=== PATIENT | male | born 1995 | race American Indian/Alaskan Native ===

== ENCOUNTER 2020-02-20 07:07 | Emergency (ER) | payer OTHER ==
[2020-02-20 07:14] VITALS: BP 167/94
[2020-02-20 08:27] LABS: Basophils % (Auto) 0.4 % (0.0-1.8); Eosinophils % (Auto) 0.2 % (0.0-4.3); Hematocrit 44.2 % (35.5-45.6); Hemoglobin 14.6 gm/dl (11.8-15.2); Lymphocytes # (Auto) 0.9 K/mm3 (1.2-5.4); Lymphocytes % (Auto) 15.8 % (13.4-35.0); Mean Corpuscular HGB Conc 33 % (32-34); Mean Corpuscular Volume 90 fl (84-94); Monocytes # (Auto) 0.4 K/mm3 (0.0-0.8); Monocytes % (Auto) 6.7 % (0.0-7.3); Platelet Count 243 K/mm3 (140-440); Red Blood Count 4.93 M/mm3 (3.65-5.03); Red Cell Distribution Width 13.7 % (13.2-15.2)
[2020-02-20 08:38] LABS: Bilirubin,Urine NEG (Negative); Blood,Urine NEG (Negative); Color,Urine Amber (Yellow); Mucus,Urine 3+ /HPF
[2020-02-20 08:49] LABS: Alanine Aminotransferase 17 units/L (7-56); Albumin 4.7 g/dL (3.9-5); BUN/Creatinine Ratio 14; Blood Urea Nitrogen 11 mg/dL (9-20); Hemolysis Index 3
[2020-02-20] MEDS ORDERED: SODIUM CHLORIDE 0.9% 1000 ML 1,000 ML IV ONE ×2 (10:53→11:54)
--- NOTE | 2020-02-20 11:02 | Emergency Department Report ---
ED Abdominal Pain HPI - General Chief Complaint: Abdominal Pain Stated Complaint: ABD PAIN, VOMITTING Time Seen by Provider: 02/20/20 10:53 Source: patient Mode of arrival: Ambulatory Limitations: No Limitations - History of Present Illness Initial Comments: 24-year-old -[place] male presents to the emergency room complaining of abdominal pain and cramping with nausea and vomiting for months. Patient reports that he has not followed up with anyone as he does not have a primary care provider. Patient stated he last vomited in the waiting room. Patient states that the pain is intermittent has no pain at this moment. MD Complaint: abdominal pain Location: diffuse, epigastric Severity scale (0 -10): 0 Quality: cramping Consistency: intermittent Improves With: eating Associated Symptoms: nausea, vomiting. denies: diarrhea, constipation, dysuria, hematuria - Related Data Previous Rx's Medication Instructions Recorded Last Taken Type Doxycycline Hyclate [Doxycycline 100 mg PO Q12HR #14 tab 05/17/16 Unknown Rx Hyclate TAB] HYDROcodone/APAP 5-325 [[place] 1 each PO Q8HR PRN #10 tablet 05/17/16 Unknown Rx 5/325] Famotidine [Pepcid] 20 mg PO BID #30 tablet 02/20/20 Unknown Rx Hyoscyamine Subl [Levsin Sl 0.125 0.125 mg SL Q6HR PRN #12 tab 02/20/20 Unknown Rx TAB] Allergies Allergy/AdvReac Type Severity Reaction Status Date / Time No Known Allergies Allergy Verified 05/17/16 03:03 ED Review of Systems ROS: Stated complaint: ABD PAIN, VOMITTING Other details as noted in HPI Comment: All other systems reviewed and negative ED Past Medical Hx - Past Medical History Previous Medical History?: Yes Hx Asthma: Yes - Surgical History Past Surgical History?: Yes Additional Surgical History: Tonsillectomy - Social History Smoking Status: Current Every Day Smoker Substance Use Type: Marijuana - Medications Home Medications: Home Medications Medication Instructions Recorded Confirmed Last Taken Type Doxycycline Hyclate [Doxycycline 100 mg PO Q12HR #14 tab 05/17/16 Unknown Rx Hyclate TAB] HYDROcodone/APAP 5-325 [[place] 1 each PO Q8HR PRN #10 tablet 05/17/16 Unknown Rx 5/325] Famotidine [Pepcid] 20 mg PO BID #30 tablet 02/20/20 Unknown Rx Hyoscyamine Subl [Levsin Sl 0.125 0.125 mg SL Q6HR PRN #12 tab 02/20/20 Unknown Rx TAB] ED Physical Exam - General Limitations: No Limitations General appearance: alert, in no apparent distress, obese - Head Head exam: Present: atraumatic, normocephalic - Eye Eye exam: Present: normal appearance - ENT ENT exam: Present: mucous membranes moist - Neck Neck exam: Present: normal inspection, full ROM - GI/Abdominal GI/Abdominal exam: Present: soft, normal bowel sounds. Absent: distended, tenderness, guarding, rebound - Extremities Exam Extremities exam: Present: normal inspection - Back Exam Back exam: Present: normal inspection - Neurological Exam Neurological exam: Present: alert, oriented X3, normal gait - Psychiatric Psychiatric exam: Present: normal affect, normal mood - Skin Skin exam: Present: warm, dry, intact, normal color. Absent: rash ED Course Vital Signs 02/20/20 07:11 Temperature 98.6 F Pulse Rate 70 Respiratory 20 Rate Blood Pressure 167/94 O2 Sat by Pulse 98 Oximetry ED Medical Decision Making - Lab Data Result diagrams: 02/20/20 07:59 02/20/20 07:59 - Medical Decision Making 24-year-old -[place] male presents to the emergency room complaining of abdominal pain and cramping with nausea and vomiting for months. Patient reports that he has not followed up with anyone as he does not have a primary care provider. Patient stated he last vomited in the waiting room. Patient states that the pain is intermittent has no pain at this moment. Patient currently has no abdominal pain. Review of urinalysis shows that he has 80 ketones with a elevated specific gravity will give patient IV with normal saline. Discussed with patient is to follow-up with a primary care provider or GI specialist. Patient verbalized understanding. Critical care attestation.: If time is entered above; I have spent that time in minutes in the direct care of this critically ill patient, excluding procedure time. ED Disposition Clinical Impression: Chronic generalized abdominal pain, Obesity Disposition: DC-01 TO HOME OR SELFCARE Is pt being admited?: No Does the pt Need Aspirin: No Condition: Stable Instructions: Abdominal Pain (ED), Obesity (ED) Additional Instructions: Please take medication as prescribed for acid reflux and abdominal cramping. 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 I have listed several below for your convenience. Increase your fluid intake. Prescriptions: Hyoscyamine Subl [Levsin Sl 0.125 TAB] 0.125 mg SL Q6HR PRN #12 tab PRN Reason: abd pain Famotidine [Pepcid] 20 mg PO BID #30 tablet Referrals: BLACK VELASCO MD [Primary Care Provider] - 3-5 Days [facility] [Provider Group] - 3-5 Days HAILEE SHETTY MD [Staff Physician] - 3-5 Days
== END 2020-02-20 16:20 | disposition home or self-care (01) ==
LOC: ED 07:07
DX: J45.909 Unspecified asthma, uncomplicated (principal); F17.200 Nicotine dependence, unspecified, uncomplicated; F12.10 Cannabis abuse, uncomplicated; Z90.89 Acquired absence of other organs; Z79.899 Other long term (current) drug therapy; E66.8 Other obesity
CPT/HCPCS: 36415; 80053; 81001; 83690; 85025; 96360; 96361; 99283; J7030

== ENCOUNTER 2022-07-04 10:12 | Emergency (ER) | payer SELFPAY ==
[2022-07-04] MEDS ORDERED: ONDANSETRON 4 MG ODT TAB PO ONE (12:37)
[2022-07-04] MEDS ORDERED: ALUM-MAG HYDROXIDE-SIMETHICONE 200-200-20MG/5ML ORAL LIQD 30 ML PO ONE (12:37)
[2022-07-04] MEDS ORDERED: DICYCLOMINE 10 MG/5 ML ORAL LIQD PO ONE (12:37)
[2022-07-04] MEDS ORDERED: LIDOCAINE VISCOUS 2% 15 ML ORAL LIQD PO ONE (12:37)
[2022-07-04 13:31] VITALS: BP 122/77
[2022-07-04 13:45] LABS: Hematocrit 42.5 % (35.5-45.6); Hemoglobin 13.9 gm/dl (11.8-15.2); Mean Corpuscular HGB Conc 33 % (32-34); Mean Corpuscular Volume 90 fl (84-94); Platelet Count 270 K/mm3 (140-440); Red Blood Count 4.74 M/mm3 (3.65-5.03); Red Cell Distribution Width 13.5 % (13.2-15.2)
[2022-07-04 14:01] LABS: Alanine Aminotransferase 19 units/L (7-56); Albumin 4.4 g/dL (3.9-5); BUN/Creatinine Ratio 12; Blood Urea Nitrogen 11 mg/dL (9-20); Calcium 9.7 mg/dL (8.4-10.2); Hemolysis Index 9
--- NOTE | 2022-07-04 15:29 | Emergency Department Report ---
ED Abdominal Pain HPI - General Chief Complaint: Abdominal Pain Stated Complaint: VOMITTING X3 Time Seen by Provider: 07/04/22 12:13 Source: patient Mode of arrival: Ambulatory Limitations: No Limitations - History of Present Illness Initial Comments: 26-year-old black male with no past medical history presents to the emergency department for evaluation of 3 to 4-day history of intermittent nausea vomiting along with burning to his epigastric area. He states that sometimes when he eats he vomits any pain has the burning in his epigastric area. He states that he has been intermittent but worse than usual. He denies fever, dysuria, penile discharge, or any sick contacts. MD Complaint: abdominal pain -: days(s) (3-4) Location: epigastric Radiation: none Migration to: no migration Severity scale (0 -10): 3 Quality: burning Consistency: intermittent Worsens With: eating Associated Symptoms: nausea, vomiting. denies: diarrhea, fever, chills, dysuria, hematemesis, hematochezia, melena, hematuria, anorexia, syncope - Related Data Previous Rx's Medication Instructions Recorded Last Taken Type Doxycycline Hyclate [Doxycycline 100 mg PO Q12HR #14 tab 05/17/16 Unknown Rx Hyclate TAB] HYDROcodone/APAP 5-325 [[place] 1 each PO Q8HR PRN #10 tablet 05/17/16 Unknown Rx 5/325] Famotidine [Pepcid] 20 mg PO BID #30 tablet 02/20/20 Unknown Rx Hyoscyamine Subl [Levsin Sl 0.125 0.125 mg SL Q6HR PRN #12 tab 02/20/20 Unknown Rx TAB] Ondansetron [Zofran Odt] 4 mg PO Q8HR PRN #12 tab.rapdis 07/04/22 Unknown Rx Pantoprazole [Protonix] 40 mg PO QAM #30 tablet 07/04/22 Unknown Rx Allergies Allergy/AdvReac Type Severity Reaction Status Date / Time No Known Allergies Allergy Verified 05/17/16 03:03 ED Review of Systems ROS: Stated complaint: VOMITTING X3 Other details as noted in HPI Comment: All other systems reviewed and negative Constitutional: denies: chills, diaphoresis, fever, malaise, weakness ENT: denies: congestion Respiratory: denies: shortness of breath Cardiovascular: denies: chest pain, palpitations Gastrointestinal: abdominal pain, nausea, vomiting. denies: diarrhea, hematemesis, melena, hematochezia Genitourinary: denies: urgency, dysuria, frequency, hematuria, discharge Musculoskeletal: back pain Neurological: headache, weakness ED Past Medical Hx - Past Medical History Hx Asthma: Yes - Surgical History Additional Surgical History: Tonsillectomy - Social History Smoking Status: Current Every Day Smoker Substance Use Type: Marijuana - Medications Home Medications: Home Medications Medication Instructions Recorded Confirmed Last Taken Type Doxycycline Hyclate [Doxycycline 100 mg PO Q12HR #14 tab 05/17/16 Unknown Rx Hyclate TAB] HYDROcodone/APAP 5-325 [[place] 1 each PO Q8HR PRN #10 tablet 05/17/16 Unknown Rx 5/325] Famotidine [Pepcid] 20 mg PO BID #30 tablet 02/20/20 Unknown Rx Hyoscyamine Subl [Levsin Sl 0.125 0.125 mg SL Q6HR PRN #12 tab 02/20/20 Unknown Rx TAB] Ondansetron [Zofran Odt] 4 mg PO Q8HR PRN #12 tab.rapdis 07/04/22 Unknown Rx Pantoprazole [Protonix] 40 mg PO QAM #30 tablet 07/04/22 Unknown Rx ED Physical Exam - General Limitations: No Limitations General appearance: alert, in no apparent distress - Head Head exam: Present: atraumatic, normocephalic - Eye Eye exam: Present: normal appearance. Absent: conjunctival injection - Neck Neck exam: Present: normal inspection, full ROM. Absent: tenderness, lym phadenopathy - Respiratory Respiratory exam: Present: normal lung sounds bilaterally. Absent: respiratory distress, wheezes, rales, rhonchi, stridor, chest wall tenderness - Cardiovascular Cardiovascular Exam: Present: regular rate, normal heart sounds - GI/Abdominal GI/Abdominal exam: Present: soft, normal bowel sounds. Absent: distended, tenderness, guarding, rebound, rigid - Extremities Exam Extremities exam: Present: normal inspection, full ROM, normal capillary refill. Absent: tenderness, pedal edema, joint swelling, calf tenderness - Back Exam Back exam: Present: normal inspection. Absent: CVA tenderness (R), CVA tenderness (L) - Neurological Exam Neurological exam: Present: alert, oriented X3, CN II-XII intact - Psychiatric Psychiatric exam: Present: normal affect, normal mood - Skin Skin exam: Present: warm, dry, intact, normal color ED Course Vital Signs 07/04/22 07/04/22 10:28 13:28 Temperature 98.8 F 98.2 F Pulse Rate 67 78 Respiratory 19 20 Rate Blood Pressure 127/77 122/77 [Left] O2 Sat by Pulse 99 98 Oximetry - Reevaluation(s) Reevaluation #1: 07/04/22 15:30 Symptoms resolved after medications. ED Medical Decision Making - Lab Data Result diagrams: 07/04/22 13:14 07/04/22 13:14 - Medical Decision Making 26-year-old black male with no past medical history presents to the emergency department for evaluation of 3 to 4-day history of intermittent nausea vomiting along with burning to his epigastric area. He states that sometimes when he ea ts he vomits any pain has the burning in his epigastric area. He states that he has been intermittent but worse than usual. He denies fever, dysuria, penile discharge, or any sick contacts. Physical exam and work up unremarkable. Symptoms resolved after medication. Patient will be discharged home with Protonix and Zofran and advised to follow up with his pcp or GI for further evaluation and management and return to ED as needed. He verbalized understanding of and agreement with plan of care. Critical care attestation.: If time is entered above; I have spent that time in minutes in the direct care of this critically ill patient, excluding procedure time. ED Disposition Clinical Impression: Epigastric pain Disposition: 01 HOME / SELF CARE / HOMELESS Is pt being admited?: No Does the pt Need Aspirin: No Condition: Stable Instructions: Gastritis, Adult, [id number] Additional Instructions: Take medications as prescribed. Follow-up with your primary care provider if no improvement or worsening symptoms. Return to the emergency department as needed. Prescriptions: Pantoprazole [Protonix] 40 mg PO QAM #30 tablet Ondansetron [Zofran Odt] 4 mg PO Q8HR PRN #12 tab.rapdis PRN Reason: Nausea And Vomiting Referrals: HAILEE SHETTY MD [Staff Physician] - 3-5 Days Forms: Work/School Release Form(ED) Time of Disposition: 15:32
== END 2022-07-04 15:58 | disposition home or self-care (01) ==
LOC: ED 10:12
DX: R10.13 Epigastric pain (principal); F17.200 Nicotine dependence, unspecified, uncomplicated; F12.90 Cannabis use, unspecified, uncomplicated; J45.909 Unspecified asthma, uncomplicated
CPT/HCPCS: 36415; 80053; 83690; 85027; 99283; J3490; Q0162